=== PATIENT | male | born 1965 | race Caucasian/White ===

== ENCOUNTER 2017-10-19 10:39 | Emergency (ER) | payer OTHER ==
[~2017-10-19] VITALS: Ht 182.9 cm; Wt 73.9 kg
[~2017-10-19 10:39] MED LIST: NIFE30TA9 PO
--- NOTE | 2017-10-19 10:56 | NUR ---
PT IS IN ROOM #1B. DR HARMON EVALUATED THE PT.
[2017-10-19] MEDS ORDERED: ONDANSETRON ODT 4 MG TAB.RAPDIS SL ONE (12:01)
[2017-10-19] MEDS ORDERED: HYDROCODONE/APAP 7.5-325MG TABLET PO PRN (12:15)
[2017-10-19] MEDS ORDERED: HYDROCODONE/APAP 7.5-325MG TABLET ONE (12:20)
[2017-10-19] MEDS ORDERED: ONDANSETRON ODT 4 MG TAB.RAPDIS ONE (12:20)
[2017-10-19] MEDS ORDERED: MISCELLANEOUS MED XX ONE (12:30)
[2017-10-19] MEDS ORDERED: DEXTROSE 5% IV ONE (12:32)
[2017-10-19] MEDS ORDERED: PHENYLEPHRINE IV ONE (12:32)
[2017-10-19] MEDS ORDERED: LIDOCAINE HCL 1% 20 ML VIAL IJ ONE (12:45)
[2017-10-19] MEDS ORDERED: LIDOCAINE HCL 1% 20 ML VIAL ONE (12:48)
[2017-10-19] MEDS ORDERED: PHENYLEPHRINE 10 MG/1 ML VIAL ONE (13:24)
--- NOTE | 2017-10-19 13:58 | NUR ---
DR CORBIN AT THE BEDSIDE, PERFORMING BLOOD WITHDRAWL PROCEDURE FROM PT'S PENIS. PT TOLERATED TO PROCEDURE WITHOUT COMPLICATIONS.
[2017-10-19] MEDS ORDERED: CEFTRIAXONE 1 G VIAL IM ONE (14:15)
[2017-10-19] MEDS ORDERED: PHENYLEPHRINE 10 MG/1 ML VIAL IV ONE (14:30)
[2017-10-19] MEDS ORDERED: CEFTRIAXONE 1 G VIAL ONE (14:36)
--- NOTE | 2017-10-19 15:03 | NUR ---
PT WAS D/C TO HOME. D/C INSTRUCTIONS GIVEN TO THE PT BY DR CORBIN.
[2017-10-19 15:04] VITALS: BP 135/79
== END 2017-10-19 15:05 | disposition home or self-care (01) ==
LOC: ER 10:39
DX: N48.33 Priapism, drug-induced (principal); I10 Essential (primary) hypertension; K21.9 Gastro-esophageal reflux disease without esophagitis; F17.200 Nicotine dependence, unspecified, uncomplicated
CPT/HCPCS: A4217; A4663; J0696; J2370; J3490; Q0162

== ENCOUNTER 2018-04-25 21:37 | Emergency (ER) | payer MEDICAID, OTHER ==
[~2018-04-25] VITALS: Ht 185.4 cm; Wt 74.8 kg
--- NOTE | 2018-04-25 21:54 | NUR ---
Dr. Gong at bedside for MSE.
[2018-04-25] MEDS ORDERED: ONDANSETRON 4 MG/2 ML VIAL IV ONE (22:00)
[2018-04-25] MEDS ORDERED: IV NORMAL SALINE 1000 ML BAG IV ONE (22:00)
[2018-04-25 22:09] LABS: BASOPHILS # (AUTO) 0.1 K/uL (0.0-8.0); BASOPHILS % (AUTO) 0.9 % (0.0-2.0); EOSINOPHILS # (AUTO) 0.4 K/uL (0.0-0.7); EOSINOPHILS % (AUTO) 4.8 % (0.0-7.0); HEMATOCRIT 43.7 % (36.7-47.1); HEMOGLOBIN 15.1 g/dL (12.5-16.3); LYMPHOCYTES # (AUTO) 2.8 K/uL (20.0-40.0); LYMPHOCYTES % (AUTO) 33.9 % (20.5-51.5); MEAN CORPUSCULAR HEMOGLOBIN 31.7 uug (23.8-33.4); MEAN CORPUSCULAR HGB CONC 35 g/dL (32.5-36.3); MEAN CORPUSCULAR VOLUME 91.8 fL (73.0-96.2); MONOCYTES # (AUTO) 0.7 K/uL (2.0-10.0); MONOCYTES % (AUTO) 8.9 % (0.0-11.0); NEUTROPHILS # (AUTO) 4.2 K/uL (1.8-8.9); NEUTROPHILS % (AUTO) 51.5 % (38.5-71.5); PLATELET COUNT (AUTO) 216 K/uL (152-348); RED BLOOD CELL COUNT(AUTO) 4.76 MIL/uL (4.06-5.63); WHITE BLOOD COUNT (AUTO) 8.1 K/uL (3.6-10.2)
[2018-04-25] MEDS ORDERED: ONDANSETRON 4 MG/2 ML VIAL ONE (22:09)
[2018-04-25 22:12] LABS: *BILIRUBIN,URIN NEGATIVE (NEGATIVE); *BLOOD, URINE NEGATIVE (NEGATIVE); *CLARITY,URINE CLEAR (CLEAR); *COLOR,URINE YELLOW (YELLOW); *KETONES,URINE NEGATIVE (NEGATIVE); *PROTEIN,URINE NEGATIVE (NEGATIVE); *UROBILINOGEN,URINE 0.2 E.U./dl (NORMAL); LEUKOCYTE ESTERASE ,URINE TRACE (NEGATIVE); NITRITE, URINE NEGATIVE (NEGATIVE); PH,URINE 5.5 (5.0-8.0); UGLUCOSE NEGATIVE (NEGATIVE)
[2018-04-25 22:13] LABS: BACTERIA,URINE FEW /HPF (NONE SEEN); RBC,URINE 0-3 /HPF (0-3); SQUAMOUS EPITHELIAL CELL,UR FEW /HPF (NONE SEEN); WBC,URINE 0-3 /HPF (0-3)
--- NOTE | 2018-04-25 22:15 | NUR ---
Pt provided urine, sent to lab.
[2018-04-25 22:23] LABS: BILIRUBIN,DIRECT 0.1 mg/dL (0.0-0.2); BILIRUBIN,TOTAL 0.2 mg/dL (0.2-1.0); CREATININE 0.8 mg/dL (0.6-1.3); POTASSIUM 3.8 mmol/L (3.5-5.1); TOTAL PROTEIN, SERUM 7.6 g/dL (6.4-8.2)
--- NOTE | 2018-04-25 22:30 | NUR ---
Pt out of ER for CT.
--- NOTE | 2018-04-25 22:40 | NUR ---
Pt back to ER from CT.
[2018-04-25] MEDS ORDERED: SULFAMETH/TRIMETH 800/160 MG TABLET PO ONE (23:45)
[2018-04-25] MEDS ORDERED: SULFAMETH/TRIMETH 800/160 MG TABLET ONE (23:47)
--- NOTE | 2018-04-25 23:50 | NUR ---
Patient discharged to home in stable conditon. Written and verbal after care instructions given. Patient verbalizes understanding of instructions. Patient ambulated out of ER with steady gait, no acute signs of distress, VSS, all belongings taken, IV site discontinued.
[2018-04-25 23:51] VITALS: BP 137/96
== END 2018-04-25 23:55 | disposition home or self-care (01) ==
LOC: ER 21:38
DX: N39.0 Urinary tract infection, site not specified (principal); I10 Essential (primary) hypertension; K21.9 Gastro-esophageal reflux disease without esophagitis; F17.200 Nicotine dependence, unspecified, uncomplicated; Z88.8 Allergy status to other drugs, medicaments and biological substances
CPT/HCPCS: 36415; 74176; 80048; 80076; 81001; 83690; 85025; 85730; 96361; 96374; 99285; A4663; J2405; J7030

== ENCOUNTER 2018-12-28 21:41 | Emergency (ER) | payer MEDICAID, OTHER ==
[~2018-12-28] VITALS: Ht 185.4 cm; Wt 74.4 kg
--- NOTE | 2018-12-28 22:00 | NUR ---
Pt. ambulated into ED w/ c/o hematuria w/ blood clots x 2 hours and 2/10 R testicular pain, reports redness around opening of urethra, denies PMH, denies CP/MULLIGAN/F/C/N/V, abd. S/R/NT/ND, BS active x 4,
--- NOTE | 2018-12-28 22:05 | NUR ---
Urine specimen collected and set to lab, sediment noted in urine
--- NOTE | 2018-12-28 22:10 | NUR ---
techRemy Jordan notified of US order,
[2018-12-28 22:16] LABS: *BILIRUBIN,URIN NEGATIVE (NEGATIVE); *BLOOD, URINE 2+ (NEGATIVE); *CLARITY,URINE SLIGHTLY CLOUDY (CLEAR); *COLOR,URINE YELLOW (YELLOW); *KETONES,URINE 2+ (NEGATIVE); *UROBILINOGEN,URINE 0.2 E.U./dl (NORMAL); LEUKOCYTE ESTERASE ,URINE 1+ (NEGATIVE); NITRITE, URINE NEGATIVE (NEGATIVE); PH,URINE 5.5 (5.0-8.0); UGLUCOSE 2+ (NEGATIVE)
--- NOTE | 2018-12-28 22:16 | NUR ---
[employer] at bedside for blood draw,
--- NOTE | 2018-12-28 22:20 | NUR ---
Pt. taken off unit in stretcher for CT
[2018-12-28 22:21] LABS: BACTERIA,URINE FEW /HPF (NONE SEEN); MUCUS,URINE FEW /LPF (0-FEW); SQUAMOUS EPITHELIAL CELL,UR FEW /HPF (NONE SEEN); WBC,URINE 20-50 /HPF (0-3)
[2018-12-28 22:29] LABS: BASOPHILS # (AUTO) 0.1 K/uL (0.0-8.0); BASOPHILS % (AUTO) 0.9 % (0.0-2.0); EOSINOPHILS # (AUTO) 0.1 K/uL (0.0-0.7); EOSINOPHILS % (AUTO) 0.8 % (0.0-7.0); HEMATOCRIT 38.4 % (36.7-47.1); HEMOGLOBIN 12.8 g/dL (12.5-16.3); LYMPHOCYTES # (AUTO) 2.2 K/uL (20.0-40.0); LYMPHOCYTES % (AUTO) 16.5 % (20.5-51.5); MEAN CORPUSCULAR HEMOGLOBIN 29.8 uug (23.8-33.4); MEAN CORPUSCULAR HGB CONC 33 g/dL (32.5-36.3); MEAN CORPUSCULAR VOLUME 89.3 fL (73.0-96.2); MONOCYTES # (AUTO) 1.1 K/uL (2.0-10.0); MONOCYTES % (AUTO) 8.2 % (0.0-11.0); NEUTROPHILS # (AUTO) 9.6 K/uL (1.8-8.9); NEUTROPHILS % (AUTO) 73.6 % (38.5-71.5); PLATELET COUNT (AUTO) 183 K/uL (152-348); RED BLOOD CELL COUNT(AUTO) 4.31 MIL/uL (4.06-5.63)
[2018-12-28 22:35] LABS: CREATININE 0.9 mg/dL (0.6-1.3); POTASSIUM 3.7 mmol/L (3.5-5.1)
--- NOTE | 2018-12-28 22:35 | NUR ---
Pt. back from CT, NAD
[2018-12-28 22:42] LABS: BILIRUBIN,DIRECT 0.1 mg/dL (0.0-0.2); BILIRUBIN,TOTAL 0.3 mg/dL (0.2-1.0); TOTAL PROTEIN, SERUM 6.9 g/dL (6.4-8.2)
--- NOTE | 2018-12-28 23:05 | NUR ---
US tech. at bedside for US
[2018-12-28] MEDS ORDERED: CEFTRIAXONE 1 G VIAL IM ONE (23:30)
[2018-12-28] MEDS ORDERED: NITROFURANTOIN/NITROFURAN MAC 100 MG CAPSULE PO ONE (23:30)
--- NOTE | 2018-12-28 23:44 | NUR ---
Patient discharged to home in stable conditon. Written and verbal after care instructions given. Patient verbalizes understanding of instructions.
[2018-12-28 23:45] VITALS: BP 140/99
== END 2018-12-28 23:45 | disposition home or self-care (01) ==
LOC: ER 21:44
DX: N30.91 Cystitis, unspecified with hematuria (principal); R82.4 Acetonuria; R36.1 Hematospermia; E11.65 Type 2 diabetes mellitus with hyperglycemia; I10 Essential (primary) hypertension; K21.9 Gastro-esophageal reflux disease without esophagitis; F17.200 Nicotine dependence, unspecified, uncomplicated; Z88.5 Allergy status to narcotic agent; Z79.899 Other long term (current) drug therapy
CPT/HCPCS: 36415; 76870; 85025; 87077; 87086; A4663

== ENCOUNTER 2019-07-05 15:24 | Emergency (ER) | payer OTHER ==
[~2019-07-05] VITALS: Ht 185.4 cm; Wt 68.0 kg
[2019-07-05 18:44] VITALS: BP 100/67
== END 2019-07-05 18:47 | disposition home or self-care (01) ==
LOC: ER 15:24
DX: S51.812A Laceration without foreign body of left forearm, initial encounter (principal); S51.822A Laceration with foreign body of left forearm, initial encounter; I10 Essential (primary) hypertension; K21.9 Gastro-esophageal reflux disease without esophagitis; E11.9 Type 2 diabetes mellitus without complications; Z88.5 Allergy status to narcotic agent; F17.200 Nicotine dependence, unspecified, uncomplicated; Z79.899 Other long term (current) drug therapy; W25.XXXA Contact with sharp glass, initial encounter; Y93.89 Activity, other specified; Y92.89 Other specified places as the place of occurrence of the external cause; Y99.8 Other external cause status
CPT/HCPCS: 12032; 73090 ×2; 82962; 96374; 96375; 99285; J1170; J2270; J2405; J3490; A4217; A4663; J7030

== ENCOUNTER 2019-07-07 12:18 | Emergency (ER) | payer OTHER ==
[~2019-07-07] VITALS: Ht 185.4 cm; Wt 68.0 kg
--- NOTE | 2019-07-07 12:40 | NUR ---
Dr. Sarah at the bedside for MSE.
[2019-07-07] MEDS ORDERED: NEOMY/BACITRA/POLYMYXIN B OINT UD PACKET TP ONE ×2 (12:41→12:45)
--- NOTE | 2019-07-07 12:50 | NUR ---
Patient discharged to home in stable conditon. Written and verbal after care instructions given. Patient verbalizes understanding of instructions.
== END 2019-07-07 12:50 | disposition home or self-care (01) ==
LOC: ER 12:18
DX: S54.32XA Injury of cutaneous sensory nerve at forearm level, left arm, initial encounter (principal); S51.812D Laceration without foreign body of left forearm, subsequent encounter; I10 Essential (primary) hypertension; K21.9 Gastro-esophageal reflux disease without esophagitis; E11.9 Type 2 diabetes mellitus without complications; Z88.8 Allergy status to other drugs, medicaments and biological substances; F17.200 Nicotine dependence, unspecified, uncomplicated; Z79.899 Other long term (current) drug therapy; X58.XXXA Exposure to other specified factors, initial encounter; Y93.89 Activity, other specified; Y92.89 Other specified places as the place of occurrence of the external cause; Y99.8 Other external cause status
CPT/HCPCS: A4663